=== PATIENT | female | born 1985 | race African-American/Black ===

== ENCOUNTER 2019-04-19 21:57 | Emergency (ER) | payer MEDICAID ==
[~2019-04-19] VITALS: Ht 154.9 cm; Wt 70.0 kg
[2019-04-19] MEDS ORDERED: IBUP-2030 PO (22:13)
[2019-04-19] MEDS ORDERED: ACET-2178 PO (22:13)
[2019-04-20] MEDS ORDERED: ACETAMINOPHEN 500MG TABLET PO ONE (00:15)
[2019-04-20] MEDS ORDERED: VISCOUS LIDOCAINE 2% 15 ML UDC MM PRN (00:15)
[2019-04-20 01:10] VITALS: BP 109/66
== END 2019-04-20 02:24 | disposition home or self-care (01) ==
LOC: ER 04-20 00:37
DX: K13.21 Leukoplakia of oral mucosa, including tongue (principal); J02.9 Acute pharyngitis, unspecified; F50.9 Eating disorder, unspecified; F12.10 Cannabis abuse, uncomplicated; F17.200 Nicotine dependence, unspecified, uncomplicated; Z98.890 Other specified postprocedural states; Z79.899 Other long term (current) drug therapy
CPT/HCPCS: 82962; 87070; 87430; 99283